=== PATIENT | female | born 1995 | race African-American/Black ===

== ENCOUNTER 2025-01-11 09:51 | Emergency (ER) | payer MEDICAID ==
[~2025-01-11] VITALS: Ht 162.6 cm; Wt 54.0 kg
[2025-01-11 10:06] VITALS: O2SAT 100
[2025-01-11 10:38] LABS: BASOPHILS % 0.6 % (0.0-2.0); EOSINOPHILS % 0.2 % (0.0-5.0); HEMATOCRIT. 47.1 % (36.0-48.0); HEMOGLOBIN. 15.4 g/dL (12.0-16.0); LYMPHOCYTES % 42.5 % (20.0-50.0); MEAN PLATELET VOLUME 7.5 fl (7.4-10.4); MONOCYTES % 8.4 % (2.0-8.0); NEUTROPHILS % 48.3 % (40.0-76.0); PLATELET 378 x1000/uL (130-400); RED BLOOD CELL COUNT 5.43 mill/uL (4.2-5.4); RED CELL DISTRIBUTION WIDTH 13.6 % (11.6-14.6)
[2025-01-11 10:51] LABS: CREATININE 1.3 mg/dL (0.6-1.0)
[2025-01-11 10:52] LABS: UREA NITROGEN BLOOD 11.0 mg/dL (9-23)
[2025-01-11] MEDS: SODIUM CHLORIDE 0.9% 1,000 ML IV ONE (11:00)
[2025-01-11] MEDS ORDERED: FAMOTIDINE 20MG TABLET PO ONE (11:00)
[2025-01-11] MEDS ORDERED: ONDANSETRON 4MG ODT PO ONE (11:00)
[2025-01-11 11:10] LABS: HCG SCREEN NEGATIVE
[2025-01-11 11:11] LABS: ETHANOL BLOOD < 10 mg/dL (<10)
[2025-01-11 11:12] LABS: ASPARTATE AMINOTRANSFERASE 30 IU/L (<34); BILIRUBIN DIRECT 0.6 mg/dL (<=3.0); BILIRUBIN TOTAL 2.2 mg/dL (0.1-1.0); PROTEIN TOTAL 7.8 g/dL (6.0-8.3)
[2025-01-11 11:40] LABS: CLARITY URINE CLOUDY (CLEAR); COLOR URINE DARK YELLOW (YELLOW); GLUCOSE URINE NEGATIVE (NEGATIVE); KETONES URINE TRACE (NEGATIVE); LEUKOCYTE ESTERASE URINE 1+ (NEGATIVE); NITRITE URINE NEGATIVE (NEGATIVE); OCCULT BLOOD URINE 3+ (NEGATIVE); PH URINE 6.0 (4.5-8.0); PROTEIN URINE 2+ (NEGATIVE); SPECIFIC GRAVITY URINE 1.034 (1.005-1.030); UROBILINOGEN URINE 1.0 E.U./dL (0.2-1.0)
[2025-01-11 11:51] LABS: PHOSPHORUS 3.4 mg/dL (2.5-4.9)
[2025-01-11] MEDS: KCL 20MEQ/100ML PREMIX 100 ML IV SCH (12:14)
[2025-01-11] MEDS: ONDANSETRON HCL 4MG/2ML INJ IV ONE (12:14)
[2025-01-11] MEDS: FAMOTIDINE 20MG/2ML VIAL IV ONE (12:15)
[2025-01-11 12:27] LABS: BACTERIA URINE 4+; RBC URINE 0-2 /hpf (0-2); YEAST URINE NONE SEEN
[2025-01-11 12:28] LABS: SQUAMOUS EPITHELIAL CELL URINE 3+ /lpf (RARE/1+)
[2025-01-11 12:43] LABS: *AMPHETAMINES SCREEN URINE NEGATIVE (NEGATIVE); *BARBITURATES SCREEN URINE NEGATIVE (NEGATIVE)
[2025-01-11 12:44] LABS: *BENZODIAZEPINES SCREEN URINE NEGATIVE (NEGATIVE); *COCAINE SCREEN URINE NEGATIVE (NEGATIVE); CANNABINOID URINE SCREEN PRESUMPTIVE POSITIVE (NEGATIVE); ECSTASY MDMA SCREEN URINE NEGATIVE (NEGATIVE); METHADONE URINE SCREEN NEGATIVE (NEGATIVE); OPIATES URINE SCREEN NEGATIVE (NEGATIVE); PHENCYCLIDINE URINE SCREEN NEGATIVE (NEGATIVE)
[2025-01-11 14:00] VITALS: BP 119/77; PULSE 75; RESP 15; TEMP 36.8; O2SAT 100
== END 2025-01-11 14:24 | disposition short-term general hospital (02) ==
LOC: ER 09:51
DX: E87.6 Hypokalemia (principal); R11.2 Nausea with vomiting, unspecified; K29.70 Gastritis, unspecified, without bleeding; N94.6 Dysmenorrhea, unspecified; F12.10 Cannabis abuse, uncomplicated; Z87.891 Personal history of nicotine dependence; Z79.899 Other long term (current) drug therapy; Z20.822 Contact with and (suspected) exposure to COVID-19
CPT/HCPCS: 80076; 80305; 80048; 81003; 80320; 84703; 83690; 83735; 84100; 85025; 36415; 74176; 96361; 96365; 96375; 99291; 87426; J1308; J2405; J3480; J7030; Z7610 ×3; A4606; G0480